=== PATIENT | female | born 1980 | race Two or more races ===

== ENCOUNTER 2025-01-05 06:16 | Emergency (ER) | payer MEDICAID, SELFPAY ==
[2025-01-05 06:16] VITALS: BMI 35.6
[2025-01-05 06:23] VITALS: BP 155/93; PULSE 76; RESP 18; TEMP 36.8; O2SAT 96
--- NOTE | 2025-01-05 06:41 | EDNOTE_ITS ---
ED Skin Abcess FB-RME/HPI General Chief complaint: Skin/Abscess/Foreign Body Stated complaint: RASH ON CHEST Time Seen by Provider: 01/05/25 06:17 Arrival date/time: 01/05/25 06:16 This is a 44-year-old female that comes in with complaints of rash to chest back that started a couple days ago. Patient states that she has been depressed recently but is now feeling better. Patient states she was not taking a shower for a couple days. Patient states Younes and primary to provider in a long time. Related Data Home Medications ?Medication ?Instructions ?Recorded ?Confirmed aripiprazole 15 mg tablet (Abilify) 15 mg PO QDAY 01/1005/26/20 Previous Rx's ?Medication ?Instructions ?Recorded cephalexin 500 mg capsule (Keflex) 500 mg PO BID #10 c aps 05/26/20 clotrimazole 1 % topical cream 1 applic topical BID 7 days #15 01/05/25 grams diphenhydramine HCl 50 mg tablet 50 mg PO Q6H PRN patti rgy symptoms 01/05/25 (Benadryl Allergy) #14 tabs Allergies Allergy/AdvReac Type Severity Reaction Status Date / Time No Known Allergies Allergy Verified 05/26/20 12:08 Course Vital Signs Vital signs: Vital Signs Temperature 98.2 F 01/05/25 06:23 Pulse Rate 76 01/05/25 06:23 Respiratory Rate 18 01/05/25 06:23 Blood Pressure 155/93 H 01/05/25 06:23 Pulse Oximetry (%) 96 01/05/25 06:23 Oxygen Delivery Method Room Air 01/05/25 06:23 Discharge Plan Plan Patient Disposition: HOME (Self Care) Patient condition on transfer: Stable Prescriptions/Referrals Prescriptions/Med Rec: New clotrimazole 1 % cream 1 applic topical BID 7 Days Qty: 15 0RF Benadryl Allergy 50 mg tablet 50 mg PO Q6H PRN (Reason: allergy symptoms) Qty: 14 0RF No Action aripiprazole [Abilify] 15 mg Tablet 15 mg PO QDAY cephalexin [Keflex] 500 mg capsule 500 mg PO BID Qty: 10 0RF Problem List Clinical Impression: Tinea corporis, Allergic reaction Patient/Caregiver Discharge Instructions Discharge Activity: activity as tolerated Education Materials: ED Ringworm, Skin Additional Instructions: Keep scheduled appointment with primary provider. Come back to the emergency room if symptoms change or worsen. Print Language: Israeli Stand Alone Forms: Scarlet Award Info., Patient Portal Info Letter PA/EXEC[employer]IVE [employer]GR[employer] DIRECTOR Supervising Physician PA/[employer]IVE [employer] PROGRAMS DIRECTOR Supervising Physician: chepe
[2025-01-05] MEDS: DiphenhydrAMINE 25 MG CAPSULE 50 MG PO (07:06)
[2025-01-05] MEDS: FLUCONAZOLE 150 MG TABLET 300 MG PO (07:06)
== END 2025-01-05 07:20 | disposition home or self-care (01) ==
LOC: SERX 07:07
PROVIDERS: Emergency Provider Family Medicine; PCP Nurse Practitioner Family
DX: B35.4 Tinea corporis (principal); T78.40XA Allergy, unspecified, initial encounter
CPT/HCPCS: 99282; A9270